=== PATIENT | female | born 1990 | race African-American/Black ===

== ENCOUNTER 2017-01-12 20:52 | Emergency (ER) | payer OTHER ==
[2017-01-12 21:02] VITALS: BP 98/56; PULSE 59; TEMP 98.3; BMI 24.5
--- NOTE | 2017-01-12 21:15 | PDOC ---
History of Present Illness - General History Source: Patient Exam Limitations: No Limitations - History of Present Illness Initial Comments: 01/12/17 21:21 The patient is a 26 year old female with no significant past medical history who presents to the ED for 3 days of right-sided headache. Patient describes her pain as sharp in nature localized in the right temporal with right eye blurriness. States she noted her headache also lasted the length of her menses and her LMP just ended. Patient reports she occasionally has headaches, but this headache is unusual for her. Denies nausea, vomiting, dizziness, or photophobia. The patient denies fever, chills, cough, SOB, chest pain, abdominal pain, and diarrhea. Allergies: NKDA Social History: No alcohol, tobacco, or drug use reported. Past Surgical History: None reported PCP: Dr. Devaughn Butts <Paulien Stafford - Last Filed: 01/12/17 21:20> - General History Source: Patient <Reggie Reyes - Last Filed: 01/12/17 22:40> - General Chief Complaint: Headache Stated Complaint: HEADACHE Time Seen by Provider: 01/12/17 21:11 Past History <Pauline Stafford - Last Filed: 01/12/17 21:20> - Past Medical History Cardiac Disorders: Yes (HEART MURMUR.) - Reproductive History (#): 0 Para: 0 Cervical CA: No Dysfunctional Uterine Bleeding: No Ectopic : No Endometrial CA: No Polycystic Ovaries: No Therapeutic (s) & number: No Tubal Ligation: No Spontaneous : 0 - Immunization History Td Vaccination: Yes Immunization Up to Date: Yes - Psycho/Social/Smoking Cessation Hx Anxiety: No Suicidal Ideation: No Smoking Status: No Smoking History: Never smoked Years of Tobacco Use: 0 Have you smoked in the past 12 months: No Number of Cigarettes Smoked Daily: 0 Cigars Per Day: 0 Hx Alcohol Use: No Drug/Substance Use Hx: No Substance Use Type: Alcohol <Reggie Reyes - Last Filed: 01/12/17 22:40> - Past Medical History Allergies/Adverse Reactions: Allergies Allergy/AdvReac Type Severity Reaction Status Date / Time No Known Allergies Allergy Verified 01/12/17 20:59 Home Medications: Ambulatory Orders Acetaminophen [Tylenol] 650 mg PO QID PRN 01/12/17 Acetaminophen/Caffeine/Butalb [Fioricet -] 1 tab PO Q6H #14 tablet MDD 4 Ibuprofen 800 mg PO TID #30 tablet 01/12/17 Ibuprofen [Motrin -] 600 mg PO TID PRN 01/12/17 Metoclopramide HCl [Reglan -] 10 mg PO TID #30 tablet 01/12/17 Review of Systems - Review of Systems Able to Perform ROS?: Yes Comments:: 01/12/17 21:21 CONSTITUTIONAL: Absent: fever, no chills, no fatigue EYES: +R eye blurriness ENT: Absent: ear pain, no sore throat CARDIOVASCULAR: Absent: chest pain, no palpitations RESPIRATORY: Absent: cough, no SOB GI: Absent: abdominal pain, no nausea, no vomiting, no constipation, no diarrhea GENITOURINARY: Absent: dysuria, no frequency, no hematuria MUSCULOSKELETAL: Absent: back pain, no arthralgia, no myalgia SKIN: Absent: rash NEURO: +R temporal headache <Pauline Stafford - Last Filed: 01/12/17 21:20> *Physical Exam - Vital Signs Last Vital Signs Temp Pulse Resp BP Pulse Ox 98.3 F 59 L 16 98/56 100 01/12/17 21:01 01/12/17 21:01 01/12/17 21:01 01/12/17 21:01 01/12/17 21:01 - Physical Exam Comments: 01/12/17 21:21 GENERAL: Well-appearing, well-nourished. No apparent distress. HEENT: Normocephalic, atraumatic. PERRL, EOM intact. CARDIOVASCULAR: Normal S1, S2. Regular rate and rhythm. PULMONARY: Clear to auscultation bilaterally. ABDOMEN: Soft, non-distended, non-tender. EXTREMITIES: Normal ROM in all four extremities. No gross deformities. SKIN: Warm, dry. No rash NEUROLOGICAL: No focal neurological deficits. <Pauline Stafford - Last Filed: 01/12/17 21:20> - Vital Signs Last Vital Signs Temp Pulse Resp BP Pulse Ox 98.3 F 59 L 16 98/56 100 01/12/17 21:01 01/12/17 21:01 01/12/17 21:01 01/12/17 21:01 01/12/17 21:01 <Reggie Reyes - Last Filed: 01/12/17 22:40> Medical Decision Making - Medical Decision Making 01/12/17 22:40 Dr. Reyes: The scribe's documentation has been prepared under my direction and personally reviewed by me in its entirery. I confirm that the note above accurately reflects all work, treatment, procedures, and medical decision making performed by me. Patient feels better. We will discharge. Medications sent to pharmacy. <Reggie Reyes - Last Filed: 01/12/17 22:40> *DC/Admit/Observation/Transfer - Attestations Scribe Attestion: 01/12/17 21:21 Documentation prepared by Pauline Stafford, acting as medical assistant for Reggie Reyes MD/DO. <Pauline Stafford - Last Filed: 01/12/17 21:20> - Discharge Dispostion Admit: No <Reggie Reyes - Last Filed: 01/12/17 22:40> Diagnosis at time of Disposition: Headache Qualifiers: Headache type: unspecified Headache chronicity pattern: unspecified pattern Intractability: not intractable Qualified Code(s): R51 - Headache - Discharge Dispostion Disposition: HOME Condition at time of disposition: Stable - Referrals Referrals: Roel Pollock MD, MD [Primary Care Provider] - Bentley Cordero MD [Staff Physician] - - Patient Instructions Printed Discharge Instructions: DI for Headache - Post Discharge Activity Work/School Note: Back to Work
[2017-01-12] MEDS ORDERED: METOCLOPRAMIDE HCL 10 MG TABLET (FP) PO ONE ×2 (21:16→21:25)
[2017-01-12] MEDS ORDERED: IBUPROFEN 400 MG TABLET (FP) PO ONE ×2 (21:16→21:25)
== END 2017-01-12 22:54 | disposition home or self-care (01) ==
LOC: JER 20:52
DX: R51 Headache (principal)
CPT/HCPCS: 84703; 99282-25

== ENCOUNTER 2017-02-28 21:34 | Emergency (ER) | payer SELFPAY ==
[2017-02-28 21:45] VITALS: BP 132/55; PULSE 56; TEMP 98; BMI 27.3
[2017-02-28] MEDS ORDERED: METOCLOPRAMIDE HCL INJECTION 10 MG/2 ML VIAL IVPUSH ONE (22:42)
[2017-02-28] MEDS ORDERED: KETOROLAC TROMETHAMINE 30 MG/1 ML VIAL IVPUSH ONE (22:53)
--- NOTE | 2017-02-28 23:14 | PDOC ---
History of Present Illness - General Chief Complaint: Migraine Headache Stated Complaint: Migraine Headache Time Seen by Provider: 02/28/17 22:13 - History of Present Illness Initial Comments: 02/28/17 23:06 Ms. Holland is a 26 yo female with h/o migraines who presents for headache. She reports 24 hour pulsatile, sharp, unremitting, stable, 10/10 right sided temporal pain. This is accompanied with 24 hours right sided blurring of vision , unilateral lacrimation, loss of appetite, fatigue, SOB, photophobia, and nausea without vomiting. She denies preceding aura, weakness, rhinorrhea, myalgias, neck stiffness, numbness/tingling. Last seen in ED ( 01/12) for Headache. Recently saw Neurology 02/16 for Migraine and received prescription for Topirimate 50 mg, Sumitriptan 100 mg, and Etodolac 400 mg. Denies taking Topirimate, and Sumatriptan, despite effective alleviation of symptoms with medication. She states that she "has not eaten yet and does not want to take her medication." Denies caffeine intake and reports adequate fluid hydration in past 24 hours with 48 ounces of water. 02/28/17 23:48 Past History - Past Medical History Allergies/Adverse Reactions: Allergies Allergy/AdvReac Type Severity Reaction Status Date / Time No Known Allergies Allergy Verified 02/28/17 21:45 Home Medications: Ambulatory Orders Etodolac 400 mg PO DAILY 03/01/17 Sumatriptan Succinate [Imitrex] 100 mg PO Q2H PRN 03/01/17 Topiramate 50 mg PO BID 03/01/17 Cardiac Disorders: Yes (HEART MURMUR.) Other medical history: migraine headache - Reproductive History (#): 0 Para: 0 Cervical CA: No Dysfunctional Uterine Bleeding: No Ectopic : No Endometrial CA: No Polycystic Ovaries: No Therapeutic (s) & number: No Tubal Ligation: No Spontaneous : 0 - Immunization History Td Vaccination: Yes Immunization Up to Date: Yes - Psycho/Social/Smoking Cessation Hx Anxiety: No Suicidal Ideation: No Smoking Status: No Smoking History: Never smoked Years of Tobacco Use: 0 Have you smoked in the past 12 months: No Number of Cigarettes Smoked Daily: 0 Cigars Per Day: 0 Hx Alcohol Use: No Drug/Substance Use Hx: No Substance Use Type: Alcohol Review of Systems - Review of Systems Comments:: 02/28/17 23:15 GENERAL/CONSTITUTIONAL: No fever or chills. No weakness. HEAD, EYES, EARS, NOSE AND THROAT:. No ear pain or discharge. No sore throat. CARDIOVASCULAR: No chest pain or shortness of breath RESPIRATORY: No cough, wheezing, or hemoptysis. GASTROINTESTINAL: + Nasuea. No vomiting, diarrhea or constipation. GENITOURINARY: No dysuria, frequency, or change in urination. MUSCULOSKELETAL: No joint or muscle swelling or pain. No neck or back pain. NO neck stiffness SKIN: No rash NEUROLOGIC: + headache. No vertigo, loss of consciousness, or change in strength/sensation. ENDOCRINE: No increased thirst. No abnormal weight change HEMATOLOGIC/LYMPHATIC: No anemia, easy bleeding, or history of blood clots. ALLERGIC/IMMUNOLOGIC: No hives or skin allergy. 02/28/17 23:41 *Physical Exam - Vital Signs Last Vital Signs Temp Pulse Resp BP Pulse Ox 98 F 56 L 18 132/55 100 02/28/17 21:40 02/28/17 21:40 02/28/17 21:40 02/28/17 21:40 02/28/17 21:40 - Physical Exam Comments: 03/01/17 00:25 GENERAL: Awake, alert, and fully oriented, in no acute distress HEAD:TTP right temporal region No signs of trauma, normocephalic, atraumatic EYES: PERRLA, EOMI, sclera anicteric, conjunctiva clear ENT: Auricles normal inspection, hearing grossly normal, nares patent, oropharynx clear without exudates. Moist mucosa NECK: Normal ROM, supple, no lymphadenopathy, JVD, or masses LUNGS: No distress, speaks full sentences, clear to auscultation bilaterally HEART: Regular rate and rhythm, normal S1 and S2, no murmurs, rubs or gallops, peripheral pulses normal and equal bilaterally. ABDOMEN: Soft, nontender, normoactive bowel sounds. No guarding, no rebound. No masses EXTREMITIES: Normal inspection, Normal range of motion, no edema. No clubbing or cyanosis. NEUROLOGICAL: Cranial nerves II through XII grossly intact. Normal speech, normal gait, no focal sensorimotor deficits. Normal FELICITY, a SKIN: Warm, Dry, normal turgor, no rashes or lesions noted. Medical Decision Making - Medical Decision Making 03/01/17 01:34 Ms. Holland is a 26 yo female who presents with migraine. Patient is concerned about possible mass d/t recent migraine onset 1 month ago . Recently seen by neurology and received multiple medications for migraine treatment and ppx. Head CT scan to r/o concern for intracranial hemorrhage or mass. BHCG Negative Head CT- Unremarkable *DC/Admit/Observation/Transfer Diagnosis at time of Disposition: Headache Qualifiers: Headache type: primary stabbing headache Qualified Code(s): G44.85 - Primary stabbing headache - Discharge Dispostion Disposition: HOME Condition at time of disposition: Fair Admit: No - Patient Instructions Printed Discharge Instructions: DI for Migraine Additional Instructions: Continue to follow neurology recommendations for migraine treatment and prophylaxis. - Attestations Physician Attestion: 03/01/17 01:52 I, Dr. Magan Estrella, attest that this document has been prepared under my direction and personally reviewed by me in its entirety. I further attest, that it accurately reflects all work, treatment, procedures and medical decision -making performed by me.
[2017-02-28] MEDS ORDERED: METOCLOPRAMIDE HCL INJECTION 10 MG/2 ML VIAL ONE (23:42)
[2017-02-28] MEDS ORDERED: KETOROLAC TROMETHAMINE 30 MG/1 ML VIAL ONE (23:43)
--- NOTE | 2017-03-01 01:35 | PDOC ---
Attending Attestation - Resident Resident Name: Magan Estrella - ED Attending Attestation I have performed the following: I have examined & evaluated the patient, The case was reviewed & discussed with the resident, I agree w/resident's findings & plan, Exceptions are as noted - HPI HPI: 03/01/17 01:37 The patient is a 26 year old female with significant past medical history of migraine headaches who presents to the ED for 1 day of right-sided temporal pain. Patient describes her headache as sharp and 10/10 with associated right- sided blurry vision, loss of appetite, fatigue, SOB, photophobia, and nausea, but no vomiting. Denies associated numbness/tingling. States she was recently seen by her neurologist and prescribed topiramate 50 mg, sumatriptan 100 mg, and etodolac 400 mg for her migraines. Denies taking the topiramate and sumatriptan. The patient denies fever, chills, diaphoresis, cough, chest pain, and abdominal pain. PCP: Dr. Roel Pollock - Physicial Exam PE: 03/01/17 01:38 GENERAL: Well-appearing, well-nourished. No apparent distress. HEENT: Normocephalic, atraumatic. PERRL, EOM intact. CARDIOVASCULAR: Normal S1, S2. Regular rate and rhythm. PULMONARY: Clear to auscultation bilaterally. ABDOMEN: Soft, non-distended, non-tender. EXTREMITIES: Normal ROM in all four extremities. No gross deformities. SKIN: Warm, dry. No rash NEUROLOGICAL: No focal neurological deficits. Medical Decision Making - Medical Decision Making 03/01/17 01:38 Documentation prepared by Pauline Stafford, acting as medical claims analyst for Gilbert Sparks MD/.
== END 2017-03-01 02:08 | disposition home or self-care (01) ==
LOC: JER 21:34
PROC: 3E0333Z Introduction of Anti-inflammatory into Peripheral Vein, Percutaneous Approach (ICD-10-PCS; principal; 2017-02-28)
PROC: 3E033GC Introduction of Other Therapeutic Substance into Peripheral Vein, Percutaneous Approach (ICD-10-PCS; 2017-02-28)
DX: G44.85 Primary stabbing headache (principal)
CPT/HCPCS: 70450-TC; 84703; 99282-25

== ENCOUNTER 2017-10-03 19:56 | Emergency (ER) | payer SELFPAY ==
--- NOTE | 2017-10-03 20:03 | PDOC ---
Rapid Medical Evaluation Time Seen by Provider: 10/03/17 20:02 Medical Evaluation: Allergies Allergy/AdvReac Type Severity Reaction Status Date / Time No Known Allergies Allergy Verified 02/28/17 21:45 10/03/17 20:04 The patient presents with a chief complaint of: Fever, nasal congestion, headache and bodyaches. No meds prior to arrival. Afebrile. No n/v/d. I have performed a brief in-person evaluation of this patient. Pertinent physical exam findings: vss, [unremarkable] I have ordered the following: [None] The patient will proceed to the ED for further evaluation. Discharge Disposition - Diagnosis Influenza-like illness - Referrals - Patient Instructions - Post Discharge Activity
[2017-10-03 20:04] VITALS: BP 131/77; PULSE 82; TEMP 98.2; BMI 27.3
--- NOTE | 2017-10-03 20:32 | PDOC ---
History of Present Illness - General Chief Complaint: Cold Symptoms Stated Complaint: FATIGUE/ FEVER Time Seen by Provider: 10/03/17 20:02 History Source: Patient Exam Limitations: No Limitations - History of Present Illness Initial Comments: 10/03/17 20:27 This is a 26-year-old woman without significant past medical history was into the ER with fevers, headaches, body aches, chills, rhinorrhea, sore throat and moist cough for 3 weeks. Patient states her symptoms feel better when she drinks fluids and when she takes Tylenol. When she defers medication and fluids , her symptoms return. 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 Past History - Past Medical History Allergies/Adverse Reactions: Allergies Allergy/AdvReac Type Severity Reaction Status Date / Time No Known Allergies Allergy Verified 02/28/17 21:45 Home Medications: Ambulatory Orders Etodolac 400 mg PO DAILY 03/01/17 Sumatriptan Succinate [Imitrex] 100 mg PO Q2H PRN 03/01/17 Topiramate 50 mg PO BID 03/01/17 Cardiac Disorders: Yes (HEART MURMUR.) COPD: No - Reproductive History (#): 0 Para: 0 Cervical CA: No Dysfunctional Uterine Bleeding: No Ectopic : No Endometrial CA: No Polycystic Ovaries: No Therapeutic (s) & number: No Tubal Ligation: No Spontaneous : 0 - Immunization History Td Vaccination: Yes Immunization Up to Date: Yes - Suicide/Smoking/Psychosocial Hx Smoking Status: No Smoking History: Never smoked Years of Tobacco Use: 0 Have you smoked in the past 12 months: No Number of Cigarettes Smoked Daily: 0 Cigars Per Day: 0 Information on smoking cessation initiated: No Hx Alcohol Use: No Drug/Substance Use Hx: No Substance Use Type: Alcohol Review of Systems - Review of Systems Able to Perform ROS?: Yes Is the patient limited Israeli proficient: No Constitutional: Yes: See HPI HEENTM: Yes: See HPI Respiratory: Yes: See HPI Cardiac (ROS): No: Symptoms Reported ABD/GI: No: Symptoms Reported : No: Symptoms Reported Musculoskeletal: Yes: See HPI Integumentary: No: Symptoms Reported Neurological: No: Symptoms reported *Physical Exam - Vital Signs Last Vital Signs Temp Pulse Resp BP Pulse Ox 98.2 F 82 16 131/77 100 10/03/17 20:00 10/03/17 20:00 10/03/17 20:00 10/03/17 20:00 10/03/17 20:00 - Physical Exam General Appearance: Yes: Appropriately Dressed. No: Apparent Distress HEENT: positive: Pharyngeal Erythema, Tonsillar Erythema. negative: Tonsillar Exudate Neck: positive: Trachea midline Respiratory/Chest: positive: Lungs Clear, Normal Breath Sounds. negative: Respiratory Distress, Accessory Muscle Use Cardiovascular: positive: Regular Rhythm, Regular Rate. negative: Murmur Gastrointestinal/Abdominal: positive: Normal Bowel Sounds, Soft. negative: Tender Musculoskeletal: positive: Normal Inspection Extremity: positive: Normal Inspection Integumentary: positive: Normal Color, Dry, Warm Neurologic: positive: Fully Oriented, Alert, Normal Response, Motor Strength 5/5 Medical Decision Making - Medical Decision Making 10/03/17 20:30 A/P: 26-year-old woman without medical history presents with 3 weeks of influenza- like symptoms TMs within normal limits Pharyngeal erythema noted. No exudates present. No cervical lymphadenopathy present. Lungs clear to auscultation bilaterally. Given length of symptoms and outside treatment window I will give patient with conservative treatment for influenza-like illness Discharge home *DC/Admit/Observation/Transfer Diagnosis at time of Disposition: Influenza-like illness - Discharge Dispostion Disposition: HOME Condition at time of disposition: Stable Admit: No - Referrals - Patient Instructions Additional Instructions: Rest, drink lots of fluids: Teas, water, soups, Pedialyte Saltwater gargles Steamy showers/seem to face break up mucus Avoid contact with others until fevers and cough resolved Lots of handwashing and good hygiene Continue [id number] medications for symptomatic relief Tylenol or Motrin for fever and pain Followup with private physician in one to 2 days as needed Return to emergency department for worsened symptoms, fevers, dehydration - Post Discharge Activity Forms/Work/School Notes: Back to Work
== END 2017-10-03 20:28 | disposition home or self-care (01) ==
LOC: JERFT 19:56
DX: J11.1 Influenza due to unidentified influenza virus with other respiratory manifestations (principal)
CPT/HCPCS: 99281-25

== ENCOUNTER 2018-09-29 15:30 | Emergency (ER) | payer OTHER ==
[2018-09-29] MEDS ORDERED: ACETAMINOPHEN 500 MG TABLET (FP) PO ONE (15:40)
--- NOTE | 2018-09-29 15:41 | PDOC ---
Rapid Medical Evaluation Time Seen by Provider: 09/29/18 15:39 Medical Evaluation: Allergies Allergy/AdvReac Type Severity Reaction Status Date / Time No Known Allergies Allergy Verified 02/28/17 21:45 09/29/18 15:39 I have performed a brief in-person evaluation of this patient. The patient presents with a chief complaint of: Headache Pertinent physical exam findings: No gross deficits I have ordered the following: Tylenol The patient will proceed to the ED for further evaluation. Discharge Disposition - Diagnosis Headache - Referrals - Patient Instructions - Post Discharge Activity
[2018-09-29 15:43] VITALS: BP 119/57; PULSE 73; TEMP 98.5; BMI 29.6
[2018-09-29] MEDS ORDERED: ACETAMINOPHEN 500 MG TABLET (FP) ONE (15:47)
[2018-09-29] MEDS ORDERED: KETOROLAC TROMETHAMINE 60 MG/2 ML VIAL IM ONE (16:03)
[2018-09-29] MEDS ORDERED: KETOROLAC TROMETHAMINE 60 MG/2 ML VIAL ONE (16:09)
--- NOTE | 2018-09-29 16:46 | PDOC ---
History of Present Illness - General Chief Complaint: Headache Stated Complaint: HEADACHE Time Seen by Provider: 09/29/18 15:39 History Source: Patient Exam Limitations: No Limitations - History of Present Illness Initial Comments: 09/29/18 15:39 27-year-old female with history of headaches presents to ED with complaints of right frontal pressure causing pain behind the eye without visual changes 4 days. Patient denies any nausea but states positive photosensitivity and took 2 doses of Tylenol Extra Strength with moderate improvement but not complete resolution. Patient denies any head injury, fever, chills, neck pain but states had a root canal done 2 days prior which aggravated her symptoms. States has seen a neurologist over the years stated patient can take [id number] meds. Patient states does wear glasses secondary to poor vision of the right eye but has not worn them for approximately 8 months Timing/Duration: reports: other Severity: Yes: moderate Associated Symptoms: reports: other Past History - Travel Traveled outside of the country in the last 30 days: No Close contact w/someone who was outside of country & ill: No - Past Medical History Allergies/Adverse Reactions: Allergies Allergy/AdvReac Type Severity Reaction Status Date / Time No Known Allergies Allergy Verified 02/28/17 21:45 Home Medications: Ambulatory Orders NK [No Known Home Medication] 10/03/17 Cardiac Disorders: Yes (HEART MURMUR.) COPD: No - Reproductive History (#): 0 Para: 0 Cervical CA: No Dysfunctional Uterine Bleeding: No Ectopic : No Endometrial CA: No Polycystic Ovaries: No Therapeutic (s) & number: No Tubal Ligation: No Spontaneous : 0 - Immunization History Td Vaccination: Yes Immunization Up to Date: Yes - Suicide/Smoking/Psychosocial Hx Smoking Status: No Smoking History: Never smoked Years of Tobacco Use: 0 Have you smoked in the past 12 months: No Number of Cigarettes Smoked Daily: 0 Cigars Per Day: 0 Hx Alcohol Use: No Drug/Substance Use Hx: No Substance Use Type: Alcohol Patient Lives Alone: No Lives with/in: parents Neuro Specific PMHX - Complaint Specific PMHX Migraine: Yes Review of Systems - Review of Systems Able to Perform ROS?: Yes Constitutional: No: Symptoms Reported HEENTM: No: Symptoms Reported Respiratory: No: Symptoms reported Cardiac (ROS): No: Symptoms Reported ABD/GI: No: Symptoms Reported : No: Symptoms Reported Musculoskeletal: No: Symptoms Reported Integumentary: No: Symptoms Reported Neurological: Yes: Headache Endocrine: No: Symptoms Reported Hematologic/Lymphatic: No: Symptoms Reported *Physical Exam - Vital Signs Last Vital Signs Temp Pulse Resp BP Pulse Ox 98.5 F 73 16 119/57 L 99 09/29/18 15:40 09/29/18 15:40 09/29/18 15:40 09/29/18 15:40 09/29/18 15:40 - Physical Exam General Appearance: Yes: Nourished, Appropriately Dressed. No: Apparent Distress HEENT: positive: EOMI, MARYLOU, TMs Normal. negative: Pale Conjunctivae Neck: positive: Normal Thyroid, Supple Respiratory/Chest: positive: Lungs Clear, Normal Breath Sounds. negative: Respiratory Distress, Accessory Muscle Use Cardiovascular: positive: Regular Rhythm, Regular Rate. negative: Murmur Integumentary: positive: Normal Color, Warm, Moist Neurologic: positive: Motor Strength 5/5 (ambulatory) Moderate Sedation - Procedure Monitoring Vital Signs: Procedure Monitoring Vital Signs Temperature 98.5 F 09/29/18 15:40 Pulse Rate 73 09/29/18 15:40 Respiratory Rate 16 09/29/18 15:40 Blood Pressure 119/57 L 09/29/18 15:40 O2 Sat by Pulse Oximetry (%) 99 09/29/18 15:40 ED Treatment Course - ADDITIONAL ORDERS Additional order review: Laboratory Results 09/29/18 15:48 Urine HCG, Qual Negative - Medications Given in the ED: ED Medications Discontinued Medications Generic Name Dose Route Start Last Admin Trade Name Freq PRN Reason Stop Dose Admin Acetaminophen 1,000 mg 09/29/18 15:40 09/29/18 15:54 Tylenol - PO 09/29/18 15:41 1,000 mg ONCE ONE Administration Ketorolac Tromethamine 60 mg 09/29/18 16:03 09/29/18 16:24 Toradol Injection - IM 09/29/18 16:04 60 mg ONCE ONE Administration Medical Decision Making - Medical Decision Making 09/29/18 15:44 Chief complaint headache with right eye throbbing pain. Patient with history of the same without worsening symptoms. Patient states pain was worsened after root canal 2 days ago patient had no acute findings on exam Patient ordered for Toradol IM . 09/29/18 16:46 States feeling much better with no complaints presently. Patient recommended to take Motrin 600 mg along with wearing her eyeglasses. Patient also recommended to return to ED if symptoms worsen. *DC/Admit/Observation/Transfer Diagnosis at time of Disposition: Headache - Discharge Dispostion Disposition: HOME Condition at time of disposition: Improved - Referrals Referrals: Jaleel Freeman MD [Primary Care Provider] - - Patient Instructions Printed Discharge Instructions: DI for Hormonal and Tension Headaches Additional Instructions: I recommended to take Motrin 600 mg along with wearing your eyeglasses. I also recommended to return to ED if symptoms worsen. - Post Discharge Activity
== END 2018-09-29 16:55 | disposition home or self-care (01) ==
LOC: JER 15:30
PROC: 3E0233Z Introduction of Anti-inflammatory into Muscle, Percutaneous Approach (ICD-10-PCS; principal; 2018-09-29)
DX: R51 Headache (principal)
CPT/HCPCS: 84703; 96372; 99282-25